=== PATIENT | male | born 1995 | race Two or more races ===

== ENCOUNTER 2023-08-09 14:19 | Emergency (ER) | payer SELFPAY ==
[~2023-08-09] VITALS: Ht 177.8 cm; Wt 86.3 kg
[2023-08-09 14:55] VITALS: PULSE 96; RESP 16; O2SAT 95
[2023-08-09 15:03] LABS: Basophils # (auto) 0 10 ^3/uL (0-0.2); Basophils % (auto) 0.6 % (0.0-2.0); Eosinophils # (auto) 0 10 ^3/uL (0-0.8); Eosinophils % (auto) 0.6 % (0.0-7.0); Hematocrit 46.6 % (41.0-53.0); Hemoglobin 15.6 g/dL (13.5-17.5); Lymphocytes # (auto) 2.4 10 ^3/uL (0.4-5.4); Lymphocytes % (auto) 37.9 % (10.0-50.0); Mean Corpuscular Hemoglobin 29.6 pg (28.0-32.0); Mean Corpuscular Hgb Conc. 33.6 g/dL (32.0-36.0); Mean Corpuscular Volume 88.1 fL (80.0-100.0); Monocytes # (auto) 0.4 10 ^3/uL (0-1.3); Monocytes % (auto) 5.9 % (0.0-12.0); Neutrophils # (auto) 3.5 10 ^3/uL (1.6-8.6); Nucleated Red Blood Cells % 0.1 %; Red Blood Cells 5.29 10^6/uL (4.5-5.90); Red Cell Distribution Width 14.2 % (11.8-14.3); White Blood Cell 6.4 10^3/uL (4.4-10.8)
[2023-08-09] MEDS: HYDROcodone-ACET 10/325MG TAB PO ONE (15:21)
[2023-08-09 15:24] LABS: Alanine Aminotransferase 59 U/L (7-40); Albumin 4.7 g/dL (3.2-4.8); Alkaline Phosphatase 98 U/L (46-116); Anion Gap 11 (5-15); Aspartate Aminotransferase 50 U/L (13-40); Bilirubin, Total 0.6 mg/dL (0.2-1.0); Blood Urea Nitrogen 10 mg/dL (9-23); Calcium 9.5 mg/dL (8.5-10.1); Carbon Dioxide 23 mmol/L (20-30); Chloride 109 mmol/L (98-107); Glucose 91 mg/dL (74-106); Potassium 3.5 mmol/L (3.5-5.1); Sodium 143 mmol/L (136-145); Total Protein 7.8 g/dL (5.7-8.2)
[2023-08-09] MEDS: HYDROmorphone HCL 2 MG/ML VL/or syr IV ONE ×4 (15:40→22:02)
[2023-08-09] MEDS: KETOROLAC TROMETH 30 MG/ML 1ML VIAL IV ONE (22:03)
[2023-08-09 22:22] VITALS: BP 134/73; TEMP 98.5
[2023-08-09 22:25] VITALS: PULSE 105; RESP 12; O2SAT 100
== END 2023-08-09 23:06 | disposition short-term general hospital (02) ==
LOC: ER 14:19 → EDBD 14:19 → ER 23:06
DX: S72.091A Other fracture of head and neck of right femur, initial encounter for closed fracture (principal); Z88.8 Allergy status to other drugs, medicaments and biological substances; V89.2XXA Person injured in unspecified motor-vehicle accident, traffic, initial encounter; Y93.89 Activity, other specified; Y92.89 Other specified places as the place of occurrence of the external cause; Y99.8 Other external cause status
CPT/HCPCS: 36415; 72192; 73501; 73700; 80053; 80320; 85025; 96374; 96375; 96376; 99285; J1170; J1885